=== PATIENT | female | born 1990 | race Caucasian/White ===

== ENCOUNTER 2018-02-02 14:28 | Emergency (ER) | payer MEDICAID ==
[~2018-02-02] VITALS: Ht 165.1 cm; Wt 56.7 kg
[2018-02-02 15:35] VITALS: BP 133/75
[2018-02-02] MEDS ORDERED: IBUPROFEN 800 MG TAB PO ONE (16:30)
== END 2018-02-02 16:41 | disposition home or self-care (01) ==
LOC: ER 14:28
DX: S80.862A Insect bite (nonvenomous), left lower leg, initial encounter (principal); Z88.0 Allergy status to penicillin; W57.XXXA Bitten or stung by nonvenomous insect and other nonvenomous arthropods, initial encounter; Y93.89 Activity, other specified; Y92.89 Other specified places as the place of occurrence of the external cause; Y99.8 Other external cause status